=== PATIENT | female | born 2005 | race Caucasian/White ===

== ENCOUNTER 2024-01-24 00:49 | Emergency (ER) | payer BC ==
[~2024-01-24] VITALS: Ht 160 cm; Wt 59.0 kg
[2024-01-24 01:41] VITALS: TEMP 98
[2024-01-24] MEDS ORDERED: ONDANSETRON HCL/PF 4 MG/2 ML VIAL ONE (01:59)
[2024-01-24] MEDS: ONDANSETRON HCL/PF 4 MG/2 ML VIAL IVP ONE (02:06)
[2024-01-24] MEDS: IV NS 0.9% 1,000 ML BAG IV ONE (02:06)
[2024-01-24 02:11] VITALS: BP 119/70; O2SAT 96
[2024-01-24] MEDS ORDERED: ONDA4TAB5 PO (02:36)
== END 2024-01-24 02:51 | disposition home or self-care (01) ==
LOC: ER 00:54
DX: F10.129 Alcohol abuse with intoxication, unspecified (principal); T37.3X5A Adverse effect of other antiprotozoal drugs, initial encounter; Z88.0 Allergy status to penicillin; Y90.9 Presence of alcohol in blood, level not specified; Y92.89 Other specified places as the place of occurrence of the external cause
CPT/HCPCS: 99283; 96374; 96361; J2405; J7030